=== PATIENT | male | born 1970 | race Caucasian/White ===

== ENCOUNTER 2017-09-15 08:38 | Emergency (ER) | payer BC ==
[2017-09-15] MEDS ORDERED: Alum Hydrox/Mag Hydrox/Simeth 15 ML, Lidocaine 2% 5 ML PO ONE ×2 (09:12)
--- NOTE | 2017-09-15 09:17 | EDM.PDOC ---
ED HPI GENERAL MEDICAL PROBLEM - General Chief Complaint: Abdominal Pain Stated Complaint: STOMACH HURTS Time Seen by Provider: 09/15/17 09:08 - History of Present Illness INITIAL COMMENTS - FREE TEXT/NARRATIVE: HISTORY AND PHYSICAL: History of present illness: Patient's 47-year-old male with chief complaint of epigastric and right upper quadrant abdominal pain is an intermittent over months and has improved with baking soda and also he was put recently on omeprazole with improvement. He has run out this was prescribed in another emergency department he is not secured primary care follow-up or had any other diagnostic tests he denies chest pain shortness of breath nausea vomiting Review of systems: As per history of present illness and below otherwise all systems reviewed and negative. Past medical history: As per history of present illness and as reviewed below otherwise noncontributory. Surgical history: As per history of present illness and as reviewed below otherwise noncontributory. Social history: No reported history of drug or alcohol abuse. Family history: As per history of present illness and as reviewed below otherwise noncontributory. Physical exam: HEENT: Atraumatic, normocephalic, pupils reactive, negative for conjunctival pallor or scleral icterus, mucous membranes moist, throat clear, neck supple, nontender, trachea midline. Lungs: Clear to auscultation, breath sounds equal bilaterally, chest nontender. Heart: S1S2, regular, negative for clicks, rubs, or JVD. Abdomen: Soft, nondistended, nontender. Negative for masses or hepatosplenomegaly. Negative for costovertebral tenderness. Pelvis: Stable nontender. Genitourinary: Deferred. Rectal: Deferred. Extremities: Atraumatic, negative for cords or calf pain. Neurovascular unremarkable. Neuro: Awake, alert, oriented. Cranial nerves II through XII unremarkable. Cerebellum unremarkable. Motor and sensory unremarkable throughout. Exam nonfocal. Diagnostics: CBC CMP amylase lipase EKG ultrasound H pylori Therapeutics: GI cocktail Impression: #1 epigastric/right upper quadrant abdominal pain #2 probable gastroesophageal reflux disease Definitive disposition and diagnosis as appropriate pending reevaluation and review of above. Right Upper Abdomen Pain Score (Numeric/FACES): 2 - Related Data Allergies Allergy/AdvReac Type Severity Reaction Status Date / Time No Known Allergies Allergy Verified 09/15/17 08:54 Home Meds: Home Meds Omeprazole 40 mg PO DAILY 09/15/17 [History] Past Medical History Gastrointestinal History: Reports: GERD, PUD Endocrine/Metabolic History: Reports: Diabetes, Type II - Infectious Disease History Infectious Disease History: Reports: Chicken Pox Social & Family History - Family History Family Medical History: Noncontributory - Tobacco Use Smoking Status *Q: Never Smoker - Recreational Drug Use Recreational Drug Use: No ED ROS GENERAL - Review of Systems Review Of Systems: ROS reveals no pertinent complaints other than HPI. ED EXAM, GENERAL - Physical Exam Exam: See Below (See dictation) Course - Vital Signs Last Recorded V/S: Last Vital Signs Temp 36.3 C 09/15/17 08:52 Pulse 83 09/15/17 08:52 Resp 18 09/15/17 08:52 BP 115/74 09/15/17 08:52 Pulse Ox 96 09/15/17 08:52 - Orders/Labs/Meds Orders: Active Orders 24 hr Category Date Time Status EKG Documentation Completion [RC] STAT Care 09/15/17 09:10 Active Pulse Oximetry [RC] ASDIRECTED Care 09/15/17 09:10 Active Labs: Laboratory Tests 09/15/17 09/15/17 09/15/17 Range/Units 09:23 09:23 09:23 WBC 3.85 L (4.0-11.0) K/uL RBC 4.95 (4.50-5.90) M/uL Hgb 14.4 (13.0-17.0) g/dL Hct 40.9 (38.0-50.0) % MCV 82.6 (80.0-98.0) fL MCH 29.1 (27.0-32.0) pg MCHC 35.2 (31.0-37.0) g/dL RDW Std Deviation 38.1 (28.0-62.0) fl RDW Coeff of Jean Paul 13 (11.0-15.0) % Plt Count 151 (150-400) K/uL MPV 9.30 (7.40-12.00) fL Neut % (Auto) 43.1 L (48.0-80.0) % Lymph % (Auto) 43.4 H (16.0-40.0) % Wy[place] % (Auto) 11.4 (0.0-15.0) % Eos % (Auto) 1.8 (0.0-7.0) % Baso % (Auto) 0.3 (0.0-1.5) % Neut # (Auto) 1.7 (1.4-5.7) K/uL Lymph # (Auto) 1.7 (0.6-2.4) K/uL Wy[place] # (Auto) 0.4 (0.0-0.8) K/uL Eos # (Auto) 0.1 (0.0-0.7) K/uL Baso # (Auto) 0.0 (0.0-0.1) K/uL Nucleated RBC % 0.0 /100WBC Nucleated RBCs # 0 K/uL Sodium 140 (136-148) mmol/L Potassium 3.7 (3.5-5.1) mmol/L Chloride 104 (98-107) mmol/L Carbon Dioxide 31.7 (21.0-32.0) mmol/L BUN 10 (7.0-18.0) mg/dL Creatinine 0.9 (0.8-1.3) mg/dL Est Cr Clr Drug Dosing 111.37 mL/min Estimated GFR (MDRD) > 60.0 ml/min Glucose 169 H (74-106) mg/dL Calcium 9.1 (8.5-10.1) mg/dL Total Bilirubin 0.5 (0.2-1.0) mg/dL AST 23 (15-37) IU/L ALT 66 H (14-63) IU/L Alkaline Phosphatase 53 (46-116) U/L Total Protein 7.7 (6.4-8.2) g/dL Albumin 4.3 (3.4-5.0) g/dL Globulin 3.4 (2.0-3.5) g/dL Albumin/Globulin Ratio 1.3 (1.3-2.8) Amylase 42 (25-115) U/L Lipase 138 (73-393) U/L H. pylori IgG Antibody POSITIVE H (NEG) Meds: Medications Discontinued Medications Generic Name Dose Route Start Last Admin Trade Name Freq PRN Reason Stop Dose Admin Al Hydroxide/Mg Hydroxide 15 0 ml 09/15/17 09:12 09/15/17 09:25 ml/ Lidocaine HCl 5 ml PO 09/15/17 09:13 20 each ONETIME ONE Administration Departure - Departure Time of Disposition: 11:01 Disposition: Home, Self-Care 01 Condition: Good Clinical Impression: H. pylori infection - Discharge Information *PRESCRIPTION DRUG MONITORING PROGRAM REVIEWED*: Not Applicable *COPY OF PRESCRIPTION DRUG MONITORING REPORT IN PATIENT FANNY: Not Applicable Referrals: PCP,None [Primary Care Provider] - Forms: ED Department Discharge Additional Instructions: The following information is given to patients seen in the emergency department who are being discharged to home. This information is to outline your options for follow-up care. We provide all patients seen in our emergency department with a follow-up referral. The need for follow-up, as well as the timing and circumstances, are variable depending upon the specifics of your emergency department visit. If you don't have a primary care physician on staff, we will provide you with a referral. We always advise you to contact your personal physician following an emergency department visit to inform them of the circumstance of the visit and for follow-up with them and/or the need for any referrals to a consulting specialist. The emergency department will also refer you to a specialist when appropriate. This referral assures that you have the opportunity for followup care with a specialist. All of these measure are taken in an effort to provide you with optimal care, which includes your followup. Under all circumstances we always encourage you to contact your private physician who remains a resource for coordinating your care. When calling for followup care, please make the office aware that this follow-up is from your recent emergency room visit. If for any reason you are refused follow-up, please contact the [facility] emergency department at and asked to speak to the emergency department charge nurse. [facility] Specialty Care - General Surgery Professional Building [address] [place] [address], [address] [place] [address] Prevpa as prescribed follow-up Gen. surgery: Scheduled appointment and return as needed - My Orders Last 24 Hours: My Active Orders 09/15/17 09:10 EKG Documentation Completion [RC] STAT Pulse Oximetry [RC] ASDIRECTED - Assessment/Plan Last 24 Hours: My Active Orders 09/15/17 09:10 EKG Documentation Completion [RC] STAT Pulse Oximetry [RC] ASDIRECTED
[2017-09-15 09:51] LABS: CHLORIDE,CL 104 mmol/L (98-107); SODIUM,NA 140 mmol/L (136-148)
--- NOTE | 2017-09-15 10:17 | US ---
EXAMINATION: Right upper quadrant ultrasound HISTORY: Pain COMPARISON: None TECHNIQUE: Grayscale and color Doppler imaging obtained of the right upper quadrant. FINDINGS: The visualized pancreas is normal. The liver is moderately increased in generalized echotex ture without a focal hepatic mass. Gallbladder wall thickness is normal. No pericholecystic fluid or shadowing gallstones. The right kidney measures at least 12.1 cm [id number] without evidence of hyd ronephrosis. Common bile duct measures 2 mm. IMPRESSION: 1. Moderate fatty infiltration of the liver, otherwise unremarkable right upper quadrant ultrasound.
== END 2017-09-15 11:08 | disposition home or self-care (01) ==
LOC: MW.ED 08:38
DX: A04.8 Other specified bacterial intestinal infections (principal); E11.9 Type 2 diabetes mellitus without complications
CPT/HCPCS: 36415; 76705; 80053; 82150; 83690; 85025; 86677; 93005; 99284; A9270

== ENCOUNTER 2018-04-02 17:10 | Emergency (ER) | payer SELFPAY ==
[2018-04-02] MEDS ORDERED: Sodium Chloride 0.9% 2.5 ML Syringe FLUSH PRN (18:44)
[2018-04-02] MEDS ORDERED: Sodium Chloride 0.9% 10 ML Syringe FLUSH PRN (18:44)
[2018-04-02] MEDS ORDERED: Sodium Chloride 0.9% 1,000 ML IV ONE (18:44)
[2018-04-02] MEDS ORDERED: Pantoprazole 40 MG Vial IVPUSH ONE (18:44)
--- NOTE | 2018-04-02 18:48 | EDM.PDOC ---
<Chiquita Godfrey - Last Filed: 04/02/18 19:57> ED HPI GENERAL MEDICAL PROBLEM - General Chief Complaint: Abdominal Pain Stated Complaint: ULSERS Time Seen by Provider: 04/02/18 18:32 - History of Present Illness INITIAL COMMENTS - FREE TEXT/NARRATIVE: This Dr. Godfrey dictating addendum note as this cases endorsed to me at 7:30 PM. I discussed all testing results with the patient and they are all within normal limits but he is H. pylori positive again. He has received Protonix and I have also given him a GI cocktail. He says the pain is improving and I will give him treatment for H. pylori again but I stressed to him the need to get follow-up and have endoscopy as this is the second episode of the H. pylori infection and his pain seems to be worsening. He is nontoxic, evaluation and has some mild epigastric tenderness but it is not severe and there is no rebound or guarding. Patient says he does drink a lot of Diet Coke and I've advised him to reduce and/or quit that. Advised on reasons to return and we'll give him referral to surgery for GI follow-up. I will give him a prescription for treatment for the H. pylori Impression: Epigastric pain recurrent, H. pylori infection recurrent - Related Data Allergies Allergy/AdvReac Type Severity Reaction Status Date / Time No Known Allergies Allergy Verified 04/02/18 18:00 Home Meds: Home Meds . [No Known Home Meds] 04/02/18 [History] ED ROS GENERAL - Review of Systems Review Of Systems: ROS reveals no pertinent complaints other than HPI. Course - Vital Signs Last Recorded V/S: Last Vital Signs Temp 97.6 F 04/02/18 17:56 Pulse 64 04/02/18 17:56 Resp 20 04/02/18 17:56 BP 130/72 04/02/18 17:56 Pulse Ox 97 04/02/18 17:56 - Orders/Labs/Meds Orders: Active Orders 24 hr Category Date Time Status Saline Lock Insert [OM.PC] Stat Oth 04/02/18 18:43 Ordered Labs: Laboratory Tests 04/02/18 04/02/18 04/02/18 Range/Units 19:11 19:11 19:11 WBC 4.88 (4.0-11.0) K/uL RBC 5.13 (4.50-5.90) M/uL Hgb 15.2 (13.0-17.0) g/dL Hct 43.2 (38.0-50.0) % MCV 84.2 (80.0-98.0) fL MCH 29.6 (27.0-32.0) pg MCHC 35.2 (31.0-37.0) g/dL RDW Std Deviation 38.6 (28.0-62.0) fl RDW Coeff of Jean Paul 13 (11.0-15.0) % Plt Count 147 L (150-400) K/uL MPV 9.80 (7.40-12.00) fL Neut % (Auto) 38.4 L (48.0-80.0) % Lymph % (Auto) 47.5 H (16.0-40.0) % Haakon % (Auto) 12.1 (0.0-15.0) % Eos % (Auto) 1.8 (0.0-7.0) % Baso % (Auto) 0.2 (0.0-1.5) % Neut # (Auto) 1.9 (1.4-5.7) K/uL Lymph # (Auto) 2.3 (0.6-2.4) K/uL Haakon # (Auto) 0.6 (0.0-0.8) K/uL Eos # (Auto) 0.1 (0.0-0.7) K/uL Baso # (Auto) 0.0 (0.0-0.1) K/uL Nucleated RBC % 0.0 /100WBC Nucleated RBCs # 0 K/uL Sodium 146 (136-148) mmol/L Potassium 3.9 (3.5-5.1) mmol/L Chloride 106 (98-107) mmol/L Carbon Dioxide 32.7 H (21.0-32.0) mmol/L BUN 12 (7.0-18.0) mg/dL Creatinine 0.8 (0.8-1.3) mg/dL Est Cr Clr Drug Dosing 125.29 mL/min Estimated GFR (MDRD) > 60.0 ml/min Glucose 150 H (74-106) mg/dL Calcium 9.9 (8.5-10.1) mg/dL Total Bilirubin 0.4 (0.2-1.0) mg/dL AST 25 (15-37) IU/L ALT 74 H (14-63) IU/L Alkaline Phosphatase 60 (46-116) U/L Total Protein 7.9 (6.4-8.2) g/dL Albumin 4.2 (3.4-5.0) g/dL Globulin 3.7 (2.6-4.0) g/dL Albumin/Globulin Ratio 1.1 (0.9-1.6) Lipase 124 (73-393) U/L H. pylori IgG Antibody POSITIVE H (NEG) Meds: Medications Discontinued Medications Generic Name Dose Route Start Last Admin Trade Name Freq PRN Reason Stop Dose Admin Al Hydroxide/Mg Hydroxide 15 0 ml 04/02/18 19:21 04/02/18 19:52 ml/ Metoclopramide HCl 5 mg/ PO 04/02/18 19:22 1 each Lidocaine HCl 5 ml ONETIME ONE Administration Sodium Chloride 1,000 mls @ 999 mls/hr 04/02/18 18:44 04/02/18 19:32 Normal Saline IV 04/02/18 19:44 999 mls/hr .Bolus ONE Administration Pantoprazole Sodium 80 mg 04/02/18 18:44 04/02/18 19:38 Protonix Iv IVPUSH 04/02/18 18:45 80 mg .BOLUS ONE Administration Sodium Chloride 10 ml 04/02/18 18:44 04/02/18 19:45 Saline Flush FLUSH 10 ml ASDIRECTED PRN Administration Keep Vein Open Sodium Chloride 2.5 ml 04/02/18 18:44 04/02/18 19:45 Saline Flush FLUSH 2.5 ml ASDIRECTED PRN Administration Keep Vein Open Departure - Departure Time of Disposition: 19:58 Disposition: Home, Self-Care 01 Condition: Good Clinical Impression: Epigastric abdominal pain, H. pylori infection - Discharge Information Instructions: Helicobacter Pylori Infection Referrals: Frandy Sommers MD [Physician] - PCP,None [Primary Care Provider] - Forms: ED Department Discharge Additional Instructions: The following information is given to patients seen in the emergency department who are being discharged to home. This information is to outline your options for follow-up care. We provide all patients seen in our emergency department with a follow-up referral. The need for follow-up, as well as the timing and circumstances, are variable depending upon the specifics of your emergency department visit. If you don't have a primary care physician on staff, we will provide you with a referral. We always advise you to contact your personal physician following an emergency department visit to inform them of the circumstance of the visit and for follow-up with them and/or the need for any referrals to a consulting specialist. The emergency department will also refer you to a specialist when appropriate. This referral assures that you have the opportunity for followup care with a specialist. All of these measure are taken in an effort to provide you with optimal care, which includes your followup. Under all circumstances we always encourage you to contact your private physician who remains a resource for coordinating your care. When calling for followup care, please make the office aware that this follow-up is from your recent emergency room visit. If for any reason you are refused follow-up, please contact the [facility] emergency department at and ask to speak to the emergency department charge nurse. [facility] Specialty Care-General Surgery Professional [address] [address] Please take all medications as prescribed and avoid caffeinated products as much as possible and eat a low-fat bland diet. Please avoid alcohol. Please call and schedule a follow-up appointment in the clinic using resources given to above as we discussed for further evaluation and care and possible endoscopy. Return to ER as needed and as discussed - My Orders Last 24 Hours: My Active Orders 04/02/18 18:43 Saline Lock Insert [OM.PC] Stat - Assessment/Plan Last 24 Hours: My Active Orders 04/02/18 18:43 Saline Lock Insert [OM.PC] Stat <Quin Barrett - Last Filed: 04/03/18 07:30> ED HPI GENERAL MEDICAL PROBLEM - General Source of Information: Reports: Patient History Limitations: Reports: No Limitations - History of Present Illness INITIAL COMMENTS - FREE TEXT/NARRATIVE: History of present illness: []Patient has a history of stomach ulcers and was treated for H. pylori with an "antibiotic and some other meds" in August 2017, that helped for short time but has pain that has returned. Patient has not followed up with a primary care or general surgery. Patient denies any blood in his stool or vomiting any blood but cannot sleep at night because of the burning pain in his stomach is so severe. Review of systems: As per history of present illness and below otherwise all systems reviewed and negative. Past medical history: As per history of present illness and as reviewed below otherwise noncontributory. Surgical history: As per history of present illness and as reviewed below otherwise noncontributory. Social history: No reported history of drug or alcohol abuse. Family history: As per history of present illness and as reviewed below otherwise noncontributory. Physical exam: General: Well developed, well nourished in NAD HEENT: Atraumatic, normocephalic, pupils reactive, negative for conjunctival pallor or scleral icterus, mucous membranes moist, throat clear, neck supple, nontender, trachea midline. Lungs: Clear to auscultation, breath sounds equal bilaterally, chest nontender. Heart: S1S2, regular, negative for clicks, rubs, or JVD. Abdomen: NABS, Soft, nondistended, epigastric tenderness no rebound or guarding. Negative for masses or hepatosplenomegaly. Negative for costovertebral tenderness. Pelvis: Stable nontender. Genitourinary: Deferred. Rectal: Deferred. Extremities: Atraumatic, negative for cords or calf pain. Neurovascular unremarkable. Neuro: Awake, alert, oriented. Cranial nerves II through XII unremarkable. Cerebellum unremarkable. Motor and sensory unremarkable throughout. Exam nonfocal. Skin:warm and dry Diagnostics: CBC, chemistry, H. pylori, coags Therapeutics: IV hydration, Protonix ED Course: Patient signed out to Dr. Godfrey to check labs, diagnosis and disposition patient Impression: Prescriptions: Plan: Definitive disposition and diagnosis as appropriate pending reevaluation and review of above. Lower Abdomen Pain Score (Numeric/FACES): 6 Past Medical History HEENT History: Reports: None Cardiovascular History: Reports: None Respiratory History: Reports: None Gastrointestinal History: Reports: GERD, PUD Genitourinary History: Reports: None Musculoskeletal History: Reports: None Neurological History: Reports: None Psychiatric History: Reports: None Endocrine/Metabolic History: Reports: Diabetes, Type II Hematologic History: Reports: None Immunologic History: Reports: None Oncologic (Cancer) History: Reports: None Dermatologic History: Reports: None - Infectious Disease History Infectious Disease History: Reports: None - Past Surgical History Head Surgeries/Procedures: Reports: None Male Surgical History: Reports: None Social & Family History - Family History Family Medical History: Noncontributory - Tobacco Use Smoking Status *Q: Never Smoker Second Hand Smoke Exposure: No - Caffeine Use Caffeine Use: Reports: None - Recreational Drug Use Recreational Drug Use: No ED ROS GENERAL - Review of Systems Review Of Systems: ROS reveals no pertinent complaints other than HPI. ED EXAM, GI/ABD - Physical Exam Exam: See Below (The history of present illness) Course - Orders/Labs/Meds Orders: Active Orders 24 hr Category Date Time Status Saline Lock Insert [OM.PC] Stat Oth 04/02/18 18:43 Ordered Labs: Laboratory Tests 04/02/18 04/02/18 04/02/18 Range/Units 19:11 19:11 19:11 WBC 4.88 (4.0-11.0) K/uL RBC 5.13 (4.50-5.90) M/uL Hgb 15.2 (13.0-17.0) g/dL Hct 43.2 (38.0-50.0) % MCV 84.2 (80.0-98.0) fL MCH 29.6 (27.0-32.0) pg MCHC 35.2 (31.0-37.0) g/dL RDW Std Deviation 38.6 (28.0-62.0) fl RDW Coeff of Jean Paul 13 (11.0-15.0) % Plt Count 147 L (150-400) K/uL MPV 9.80 (7.40-12.00) fL Neut % (Auto) 38.4 L (48.0-80.0) % Lymph % (Auto) 47.5 H (16.0-40.0) % Haakon % (Auto) 12.1 (0.0-15.0) % Eos % (Auto) 1.8 (0.0-7.0) % Baso % (Auto) 0.2 (0.0-1.5) % Neut # (Auto) 1.9 (1.4-5.7) K/uL Lymph # (Auto) 2.3 (0.6-2.4) K/uL Haakon # (Auto) 0.6 (0.0-0.8) K/uL Eos # (Auto) 0.1 (0.0-0.7) K/uL Baso # (Auto) 0.0 (0.0-0.1) K/uL Nucleated RBC % 0.0 /100WBC Nucleated RBCs # 0 K/uL Sodium 146 (136-148) mmol/L Potassium 3.9 (3.5-5.1) mmol/L Chloride 106 (98-107) mmol/L Carbon Dioxide 32.7 H (21.0-32.0) mmol/L BUN 12 (7.0-18.0) mg/dL Creatinine 0.8 (0.8-1.3) mg/dL Est Cr Clr Drug Dosing 125.29 mL/min Estimated GFR (MDRD) > 60.0 ml/min Glucose 150 H (74-106) mg/dL Calcium 9.9 (8.5-10.1) mg/dL Total Bilirubin 0.4 (0.2-1.0) mg/dL AST 25 (15-37) IU/L ALT 74 H (14-63) IU/L Alkaline Phosphatase 60 (46-116) U/L Total Protein 7.9 (6.4-8.2) g/dL Albumin 4.2 (3.4-5.0) g/dL Globulin 3.7 (2.6-4.0) g/dL Albumin/Globulin Ratio 1.1 (0.9-1.6) Lipase 124 (73-393) U/L H. pylori IgG Antibody POSITIVE H (NEG) Meds: Medications Discontinued Medications Generic Name Dose Route Start Last Admin Trade Name Freq PRN Reason Stop Dose Admin Al Hydroxide/Mg Hydroxide 15 0 ml 04/02/18 19:21 04/02/18 19:52 ml/ Metoclopramide HCl 5 mg/ PO 04/02/18 19:22 1 each Lidocaine HCl 5 ml ONETIME ONE Administration Sodium Chloride 1,000 mls @ 999 mls/hr 04/02/18 18:44 04/02/18 19:32 Normal Saline IV 04/02/18 19:44 999 mls/hr .Bolus ONE Administration Pantoprazole Sodium 80 mg 04/02/18 18:44 04/02/18 19:38 Protonix Iv IVPUSH 04/02/18 18:45 80 mg .BOLUS ONE Administration Sodium Chloride 10 ml 04/02/18 18:44 04/02/18 19:45 Saline Flush FLUSH 10 ml ASDIRECTED PRN Administration Keep Vein Open Sodium Chloride 2.5 ml 04/02/18 18:44 04/02/18 19:45 Saline Flush FLUSH 2.5 ml ASDIRECTED PRN Administration Keep Vein Open - My Orders Last 24 Hours: My Active Orders 04/02/18 18:43 Saline Lock Insert [OM.PC] Stat - Assessment/Plan Last 24 Hours: My Active Orders 04/02/18 18:43 Saline Lock Insert [OM.PC] Stat
[2018-04-02] MEDS ORDERED: Alum Hydrox/Mag Hydrox/Simeth 15 ML, Metoclopramide 5 MG, Lidocaine 2% 5 ML PO ONE ×3 (19:21)
[2018-04-02 19:45] LABS: CHLORIDE,CL 106 mmol/L (98-107); SODIUM,NA 146 mmol/L (136-148)
== END 2018-04-02 20:15 | disposition home or self-care (01) ==
LOC: MW.ED 17:10
DX: R10.13 Epigastric pain (principal); B96.81 Helicobacter pylori [H. pylori] as the cause of diseases classified elsewhere
CPT/HCPCS: 36415; 80053; 83690; 85025; 86677; 96361; 96374; 99284; A9270; C9113; J7040

== ENCOUNTER 2018-04-07 07:17 | Emergency (ER) | payer SELFPAY ==
[2018-04-07] MEDS ORDERED: Alum Hydrox/Mag Hydrox/Simeth 15 ML, Lidocaine 2% 5 ML PO ONE ×2 (07:43)
[2018-04-07] MEDS ORDERED: Ondansetron 4 MG Tab.DIS PO ONE (08:12)
[2018-04-07 09:11] LABS: CHLORIDE,CL 102 mmol/L (98-107); SODIUM,NA 135 mmol/L (136-148)
--- NOTE | 2018-04-07 09:23 | EDM.PDOC ---
ED HPI GENERAL MEDICAL PROBLEM - General Chief Complaint: Abdominal Pain Stated Complaint: ABDOMINAL PAIN AND NAUSEA Time Seen by Provider: 04/07/18 07:30 Source of Information: Reports: Patient History Limitations: Reports: No Limitations - History of Present Illness INITIAL COMMENTS - FREE TEXT/NARRATIVE: History of present illness: []Patient arrives with abdominal pain in the epigastrium. He was recently diagnosed with H. pylori but could only afford to fill 2 of the meds. He has an appointment with Dr. Holley tomorrow. He denies any fevers, chills, vomiting or diarrhea. He states he feels bloated and the pain continues from when he was previously here. He denies any blood in his stools.Review of systems: As per history of present illness and below otherwise all systems reviewed and negative. Past medical history: As per history of present illness and as reviewed below otherwise noncontributory. Surgical history: As per history of present illness and as reviewed below otherwise noncontributory. Social history: No reported history of drug or alcohol abuse. Family history: As per history of present illness and as reviewed below otherwise noncontributory. Physical exam: General: Well developed, well nourished in NAD HEENT: Atraumatic, normocephalic, pupils reactive, negative for conjunctival pallor or scleral icterus, mucous membranes moist, throat clear, neck supple, nontender, trachea midline. Lungs: Clear to auscultation, breath sounds equal bilaterally, chest nontender. Heart: S1S2, regular, negative for clicks, rubs, or JVD. Abdomen: NABS, Soft, nondistended, gastric tenderness no rebound or guarding. Negative for masses or hepatosplenomegaly. Negative for costovertebral tenderness. Pelvis: Stable nontender. Genitourinary: Deferred. Rectal: Deferred. Extremities: Atraumatic, negative for cords or calf pain. Neurovascular unremarkable. Neuro: Awake, alert, oriented. Cranial nerves II through XII unremarkable. Cerebellum unremarkable. Motor and sensory unremarkable throughout. Exam nonfocal. Skin:warm and dry Diagnostics: CBC, chemistry Therapeutics: GI cocktail ED Course: Unremarkable Impression: H. pylori gastritis Prescriptions: None Plan: Follow-up with Dr. Dan as scheduled. Definitive disposition and diagnosis as appropriate pending reevaluation and review of above. Abdominal Pain Score (Numeric/FACES): 7 - Related Data Allergies Allergy/AdvReac Type Severity Reaction Status Date / Time No Known Allergies Allergy Verified 04/02/18 18:00 Home Meds: Home Meds Clarithromycin 500 mg PO BID 04/07/18 [History] Pantoprazole Sodium [Protonix] 40 mg PO DAILY 04/07/18 [History] Past Medical History HEENT History: Reports: None Cardiovascular History: Reports: None Respiratory History: Reports: None Gastrointestinal History: Reports: GERD, PUD Genitourinary History: Reports: None Musculoskeletal History: Reports: None Neurological History: Reports: None Psychiatric History: Reports: None Endocrine/Metabolic History: Reports: Diabetes, Type II Hematologic History: Reports: None Immunologic History: Reports: None Oncologic (Cancer) History: Reports: None Dermatologic History: Reports: None - Infectious Disease History Infectious Disease History: Reports: Chicken Pox - Past Surgical History Head Surgeries/Procedures: Reports: None Male Surgical History: Reports: None Social & Family History - Family History Family Medical History: Noncontributory - Tobacco Use Smoking Status *Q: Former Smoker Used Tobacco, but Quit: Yes Month/Year Tobacco Last Used: 09/2017 - Caffeine Use Caffeine Use: Reports: None - Recreational Drug Use Recreational Drug Use: No ED ROS GENERAL - Review of Systems Review Of Systems: ROS reveals no pertinent complaints other than HPI. ED EXAM, GI/ABD - Physical Exam Exam: See Below (See history of present illness) Course - Vital Signs Last Recorded V/S: Last Vital Signs Temp 97.5 F 04/07/18 07:33 Pulse 97 04/07/18 07:33 Resp 18 04/07/18 07:33 BP 106/59 L 04/07/18 07:33 Pulse Ox 97 04/07/18 07:33 - Orders/Labs/Meds Labs: Laboratory Tests 04/07/18 04/07/18 Range/Units 08:19 08:19 WBC 4.49 (4.0-11.0) K/uL RBC 5.00 (4.50-5.90) M/uL Hgb 14.8 (13.0-17.0) g/dL Hct 41.2 (38.0-50.0) % MCV 82.4 (80.0-98.0) fL MCH 29.6 (27.0-32.0) pg MCHC 35.9 (31.0-37.0) g/dL RDW Std Deviation 37.9 (28.0-62.0) fl RDW Coeff of Jean Paul 13 (11.0-15.0) % Plt Count 147 L (150-400) K/uL MPV 9.50 (7.40-12.00) fL Neut % (Auto) 50.3 (48.0-80.0) % Lymph % (Auto) 36.1 (16.0-40.0) % [place] % (Auto) 11.4 (0.0-15.0) % Eos % (Auto) 2.0 (0.0-7.0) % Baso % (Auto) 0.2 (0.0-1.5) % Neut # (Auto) 2.3 (1.4-5.7) K/uL Lymph # (Auto) 1.6 (0.6-2.4) K/uL [place] # (Auto) 0.5 (0.0-0.8) K/uL Eos # (Auto) 0.1 (0.0-0.7) K/uL Baso # (Auto) 0.0 (0.0-0.1) K/uL Nucleated RBC % 0.0 /100WBC Nucleated RBCs # 0 K/uL Sodium 135 L (136-148) mmol/L Potassium 4.0 (3.5-5.1) mmol/L Chloride 102 (98-107) mmol/L Carbon Dioxide 25.0 (21.0-32.0) mmol/L BUN 16 (7.0-18.0) mg/dL Creatinine 0.9 (0.8-1.3) mg/dL Est Cr Clr Drug Dosing 111.37 mL/min Estimated GFR (MDRD) > 60.0 ml/min Glucose 245 H (74-106) mg/dL Calcium 9.3 (8.5-10.1) mg/dL Total Bilirubin 0.3 (0.2-1.0) mg/dL AST 25 (15-37) IU/L ALT 67 H (14-63) IU/L Alkaline Phosphatase 59 (46-116) U/L Total Protein 6.9 (6.4-8.2) g/dL Albumin 3.7 (3.4-5.0) g/dL Globulin 3.2 (2.6-4.0) g/dL Albumin/Globulin Ratio 1.2 (0.9-1.6) Meds: Medications Discontinued Medications Generic Name Dose Route Start Last Admin Trade Name Santino PRN Reason Stop Dose Admin Al Hydroxide/Mg Hydroxide 15 0 ml 04/07/18 07:43 04/07/18 08:26 ml/ Lidocaine HCl 5 ml PO 04/07/18 07:44 1 each ONETIME ONE Administration Ondansetron HCl 4 mg 04/07/18 08:12 04/07/18 08:27 Zofran Odt PO 04/07/18 08:13 4 mg ONETIME ONE Administration Departure - Departure Time of Disposition: 09:22 Disposition: Home, Self-Care 01 Condition: Good Clinical Impression: Helicobacter pylori gastritis - Discharge Information *PRESCRIPTION DRUG MONITORING PROGRAM REVIEWED*: No *COPY OF PRESCRIPTION DRUG MONITORING REPORT IN PATIENT FANNY: No Referrals: PCP,None [Primary Care Provider] - Additional Instructions: The following information is given to patients seen in the emergency department who are being discharged to home. This information is to outline your options for follow-up care. We provide all patients seen in our emergency department with a follow-up referral. The need for follow-up, as well as the timing and circumstances, are variable depending upon the specifics of your emergency department visit. If you don't have a primary care physician on staff, we will provide you with a referral. We always advise you to contact your personal physician following an emergency department visit to inform them of the circumstance of the visit and for follow-up with them and/or the need for any referrals to a consulting specialist. The emergency department will also refer you to a specialist when appropriate. This referral assures that you have the opportunity for follow-up care with a specialist. All of these measure are taken in an effort to provide you with optimal care, which includes your follow-up. Under all circumstances we always encourage you to contact your private physician who remains a resource for coordinating your care. When calling for follow-up care, please make the office aware that this follow-up is from your recent emergency room visit. If for any reason you are refused follow-up, please contact the [facility] Emergency Department at and asked to speak to the emergency department charge nurse. Follow-up with general surgery tomorrow as scheduled. Try to fill your prescriptions and take meds as directed. Use Maalox for breakthrough pain. [facility] [address] [place] [id number]
[2018-04-08 10:29] LABS: HEMOGLOBIN A1C 7.4 % (4.5-6.2)
== END 2018-04-07 09:35 | disposition home or self-care (01) ==
LOC: MW.ED 07:17
DX: K29.70 Gastritis, unspecified, without bleeding (principal); B96.81 Helicobacter pylori [H. pylori] as the cause of diseases classified elsewhere; E11.9 Type 2 diabetes mellitus without complications; K21.9 Gastro-esophageal reflux disease without esophagitis; Z87.891 Personal history of nicotine dependence; Z79.899 Other long term (current) drug therapy
CPT/HCPCS: 36415; 80053; 83036; 85025; 99284; A9270

== ENCOUNTER 2018-04-28 14:11 | Emergency (ER) | payer OTHER ==
--- NOTE | 2018-04-28 14:37 | EDM.PDOC ---
ED HPI GENERAL MEDICAL PROBLEM - General Chief Complaint: ENT Problem Stated Complaint: SORE THROAT Time Seen by Provider: 04/28/18 14:13 Source of Information: Reports: Patient History Limitations: Reports: No Limitations - History of Present Illness INITIAL COMMENTS - FREE TEXT/NARRATIVE: HISTORY AND PHYSICAL: History of present illness: Patient is a 47-year-old male who presents to the emergency room with complaints of sore throat, left ear pain and body aches x 2 days. Patient is concerned that he may have had a bout of food poisoning last week as he did have multiple episodes of diarrhea each resolved approximately 4 days ago. He denies any fever, chills, chest pain, shortness of breath or cough. Denies any abdominal pain, nausea, vomiting, diarrhea, constipation or dysuria. He has been eating and drinking appropriately. Has not had an influenza vaccine this year. Review of systems: As per history of present illness and below otherwise all systems reviewed and negative. Past medical history: As per history of present illness and as reviewed below otherwise noncontributory. Surgical history: As per history of present illness and as reviewed below otherwise noncontributory. Social history: See social history for further information Family history: As per history of present illness and as reviewed below otherwise noncontributory. Physical exam: General: Well-developed and well-nourished 47-year-old male. Alert and oriented. Nontoxic appearing and in no acute distress. HEENT: Atraumatic, normocephalic, pupils equal and reactive bilaterally, negative for conjunctival pallor or scleral icterus, mucous membranes moist, left TM is erythematous with dull light reflex and no bulging. Right TM normal, erythema to the posterior oropharynx without exudate, neck supple, nontender, trachea midline. No drooling or trismus noted. No meningeal signs. No hot potato voice noted. Lungs: Clear to auscultation, breath sounds equal bilaterally, chest nontender. Heart: S1S2, regular rate and rhythm without overt murmur Abdomen: Soft, nondistended, nontender. Negative for masses or hepatosplenomegaly. Negative for costovertebral tenderness. Pelvis: Stable nontender. Genitourinary: Deferred. Rectal: Deferred. Skin: Intact, warm, dry. No lesions or rashes noted. Extremities: Atraumatic, negative for cords or calf pain. Neurovascular unremarkable. Neuro: Awake, alert, oriented. Cranial nerves II through XII unremarkable. Cerebellum unremarkable. Motor and sensory unremarkable throughout. Exam nonfocal. Notes: Negative influenza and strep screening. We will treat the otitis media with Augmentin. He states he would like something for his pain, will give Phenergan with codeine. Medication education was reviewed and discussed. Supportive care measures were reviewed and discussed. Voices understanding and is agreeable to plan of care. Denies any further questions or concerns at this time. Diagnostics: Strep screening, influenza Therapeutics: Tramadol Prescription: Augmentin and Phenergan with Codiene Impression: Otitis media, left Plan: 1. Please take the medication as directed. 2. Tylenol and/or ibuprofen as needed for pain management. 3. Please follow-up with your primary caregiver as we discussed. Return to the ED as needed and as discussed. Definitive disposition and diagnosis as appropriate pending reevaluation and review of above. left ear Pain Score (Numeric/FACES): 7 - Related Data Allergies Allergy/AdvReac Type Severity Reaction Status Date / Time No Known Allergies Allergy Verified 04/28/18 14:19 Home Meds: Home Meds . [No Known Home Meds] 04/28/18 [History] Past Medical History HEENT History: Reports: None Cardiovascular History: Reports: None Respiratory History: Reports: None Gastrointestinal History: Reports: GERD, PUD Genitourinary History: Reports: None Musculoskeletal History: Reports: None Neurological History: Reports: None Psychiatric History: Reports: None Endocrine/Metabolic History: Reports: Diabetes, Type II Hematologic History: Reports: None Immunologic History: Reports: None Oncologic (Cancer) History: Reports: None Dermatologic History: Reports: None - Infectious Disease History Infectious Disease History: Reports: Chicken Pox - Past Surgical History Head Surgeries/Procedures: Reports: None Male Surgical History: Reports: None Social & Family History - Family History Family Medical History: Noncontributory - Tobacco Use Smoking Status *Q: Never Smoker - Caffeine Use Caffeine Use: Reports: None - Recreational Drug Use Recreational Drug Use: No ED ROS ENT - Review of Systems Review Of Systems: ROS reveals no pertinent complaints other than HPI. ED EXAM, ENT - Physical Exam Exam: See Below (See dictation) Course - Vital Signs Last Recorded V/S: Last Vital Signs Temp 98.4 F 04/28/18 14:20 Pulse 86 04/28/18 14:20 Resp 20 04/28/18 14:20 BP 132/68 04/28/18 14:20 Pulse Ox 98 04/28/18 14:20 - Orders/Labs/Meds Orders: Active Orders 24 hr Category Date Time Status CULTURE STREP A CONFIRMATION [RM] Stat Lab 04/28/18 14:24 Results STREP SCRN A RAPID W CULT CONF [RM] Stat Lab 04/28/18 14:24 Results Meds: Medications Discontinued Medications Generic Name Dose Route Start Last Admin Trade Name Santino PRN Reason Stop Dose Admin Tramadol HCl 50 mg 04/28/18 14:39 04/28/18 14:51 Ultram PO 04/28/18 14:40 50 mg ONETIME ONE Administration Departure - Departure Time of Disposition: 14:58 Disposition: Home, Self-Care 01 Clinical Impression: Otitis media Qualifiers: Otitis media type: unspecified Chronicity: acute Qualified Code(s): H66.90 - Otitis media, unspecified, unspecified ear - Discharge Information Instructions: Otitis Media, Adult, [id number] Referrals: PCP,None [Primary Care Provider] - Forms: ED Department Discharge Additional Instructions: The following information is given to patients seen in the emergency department who are being discharged to home. This information is to outline your options for follow-up care. We provide all patients seen in our emergency department with a follow-up referral. The need for follow-up, as well as the timing and circumstances, are variable depending upon the specifics of your emergency department visit. If you don't have a primary care physician on staff, we will provide you with a referral. We always advise you to contact your personal physician following an emergency department visit to inform them of the circumstance of the visit and for follow-up with them and/or the need for any referrals to a consulting specialist. The emergency department will also refer you to a specialist when appropriate. This referral assures that you have the opportunity for follow-up care with a specialist. All of these measure are taken in an effort to provide you with optimal care, which includes your follow-up. Under all circumstances we always encourage you to contact your private physician who remains a resource for coordinating your care. When calling for follow-up care, please make the office aware that this follow-up is from your recent emergency room visit. If for any reason you are refused follow-up, please contact the [facility] Emergency Department at and asked to speak to the emergency department charge nurse. [facility] [address] [place] [address] [id number] 1. Please take the medication as directed. 2. Tylenol and/or ibuprofen as needed for pain management. 3. Please follow-up with your primary caregiver as we discussed. Return to the ED as needed and as discussed. - My Orders Last 24 Hours: My Active Orders 04/28/18 14:24 CULTURE STREP A CONFIRMATION [RM] Stat STREP SCRN A RAPID W CULT CONF [] Stat - Assessment/Plan Last 24 Hours: My Active Orders 04/28/18 14:24 CULTURE STREP A CONFIRMATION [RM] Stat STREP SCRN A RAPID W CULT CONF [] Stat
[2018-04-28] MEDS ORDERED: traMADol 50 MG Tab PO ONE (14:39)
== END 2018-04-28 15:20 | disposition home or self-care (01) ==
LOC: MW.ED 14:11
DX: H66.92 Otitis media, unspecified, left ear (principal); E11.9 Type 2 diabetes mellitus without complications
CPT/HCPCS: 87081; 87804; 87880; 99283; A9270